=== PATIENT | male | born 1980 | race Caucasian/White ===

== ENCOUNTER 2020-09-12 09:24 | Outpatient (REF) | payer OTHER, SELFPAY ==
[2020-09-12 11:19] LABS: Hematocrit 41.9 % (42-52); Mean Corpuscular HGB Conc 33.4 g/dl (31.0-36.0); Mean Corpuscular Hemoglobin 29.7 pg (27.0-33.0); Mean Corpuscular Volume 88.8 fL (80-98); Mean Platelet Volume 11.9 fL (9.4-12.4); Platelet Count 183 X10*3/uL (160-400); Red Blood Count 4.72 X10*6/uL (4.60-5.80); Red Cell Distribution Width 12.8 % (11.0-16.0); White Blood Count 3.1 X10*3/uL (4.8-10.8)
[2020-09-12 12:07] LABS: Alanine Aminotransferase 44 U/L (0-40); Albumin Level 4.5 g/dL (3.5-5.0); Alkaline Phosphatase 60 U/L (39-117); Anion Gap 12 (12-20); Aspartate Amino Transferase 31 U/L (5-37); Bilirubin Total 0.9 mg/dL (0.0-1.0); Blood Urea Nitrogen 15 mg/dL (9-16); Calcium 9.5 mg/dL (8.4-10.2); Carbon Dioxide 28 mmol/L (22-29); Chloride 103 mmol/L (96-108); Cholesterol 185 mg/dL; Estimated Glomerular Filt Rate > 60; Glucose Fasting 88 mg/dL (60-99); HDL Cholesterol 49 mg/dL; LDL Cholesterol Calculated 127 mg/dl; Potassium 4.8 mmol/L (3.3-5.1); Sodium 138 mmol/L (135-145); Total Protein 6.9 g/dL (6.5-8.0); Triglycerides 47 mg/dL
== END 2020-09-12 09:25 | disposition home or self-care (01) ==
LOC: HO.MANLDS 09:24
PROVIDERS: PCP Internal Medicine; Visit Provider Physician Assistant
DX: Z00.00 Encounter for general adult medical examination without abnormal findings (principal)
CPT/HCPCS: 36415; 80053; 80061; 85027

== ENCOUNTER 2021-09-16 08:47 | Outpatient (REF) | payer OTHER, SELFPAY ==
[2021-09-16 11:06] LABS: MANUAL DIFF FLAG NO
[2021-09-16 11:14] LABS: Basophils Percent Auto 0.9 % (0-2); Eosinophils Absolute Auto 0.1 X10*3/uL (0.0-0.4); Hematocrit 42.1 % (42.0-52.0); Hemoglobin 13.9 g/dl (14.0-18.0); Lymphocytes Absolute Auto 1.1 X10*3/uL (1.2-4.9); Lymphocytes Percent Auto 32.3 % (20-40); Mean Corpuscular Hemoglobin 29.4 pg (27.0-33.0); Mean Platelet Volume 12.4 fL (9.4-12.4); Monocytes Absolute Auto 0.4 X10*3/uL (0.1-1.2); Monocytes Percent Auto 11.4 % (2-11); Neutrophils Absolute Auto 1.9 x10*3/uL (2.0-8.3); Neutrophils Percent Auto 53.4 % (45-73); Platelet Count 178 X10*3/uL (160-400); Red Blood Count 4.73 X10*6/uL (4.60-5.80); Red Cell Distribution Width 13.1 % (11.0-16.0); White Blood Count 3.5 X10*3/uL (4.8-10.8)
[2021-09-16 11:27] LABS: Alanine Aminotransferase 37 U/L (0-40); Albumin Level 4.2 g/dL (3.5-5.0); Alkaline Phosphatase 64 U/L (39-117); Anion Gap 10 (12-20); Aspartate Amino Transferase 30 U/L (5-37); Bilirubin Total 0.9 mg/dL (0.0-1.0); Blood Urea Nitrogen 17 mg/dL (9-16); Calcium 9.8 mg/dL (8.4-10.2); Carbon Dioxide 28 mmol/L (22-29); Chloride 103 mmol/L (96-108); Cholesterol 187 mg/dL; Estimated Glomerular Filt Rate > 60; Glucose Fasting 93 mg/dL (60-99); HDL Cholesterol 47 mg/dL; LDL Cholesterol Calculated 128 mg/dl; Potassium 4.2 mmol/L (3.3-5.1); Sodium 137 mmol/L (135-145); Total Protein 6.8 g/dL (6.5-8.0); Triglycerides 63 mg/dL
== END 2021-09-16 08:48 | disposition home or self-care (01) ==
LOC: HO.MANLDS 08:47
PROVIDERS: PCP Physician Assistant; Visit Provider Physician Assistant
DX: Z00.00 Encounter for general adult medical examination without abnormal findings (principal)
CPT/HCPCS: 36415; 80053; 80061; 82306; 85025

== ENCOUNTER 2022-09-16 08:45 | Outpatient (REF) | payer OTHER, SELFPAY ==
[2022-09-16 11:06] LABS: MANUAL DIFF FLAG NO
[2022-09-16 11:23] LABS: Estimated Average Glucose 103 mg/dL; Hemoglobin A1c % 5.2 %
[2022-09-16 11:29] LABS: Basophils Percent Auto 0.8 % (0-2); Eosinophils Absolute Auto 0.1 X10*3/uL (0.0-0.4); Eosinophils Percent Auto 2.4 % (0-4); Hematocrit 43.5 % (42.0-52.0); Hemoglobin 14.6 g/dl (14.0-18.0); Lymphocytes Absolute Auto 1.2 X10*3/uL (1.2-4.9); Lymphocytes Percent Auto 31.3 % (20-40); Mean Corpuscular HGB Conc 33.6 g/dl (31.0-36.0); Mean Corpuscular Hemoglobin 29.7 pg (27.0-33.0); Mean Corpuscular Volume 88.6 fL (80.0-98.0); Mean Platelet Volume 12.1 fL (9.4-12.4); Monocytes Absolute Auto 0.4 X10*3/uL (0.1-1.2); Monocytes Percent Auto 10.3 % (2-11); Neutrophils Percent Auto 55.2 % (45-73); Platelet Count 227 X10*3/uL (160-400); Red Blood Count 4.91 X10*6/uL (4.60-5.80); Red Cell Distribution Width 12.8 % (11.0-16.0); White Blood Count 3.7 X10*3/uL (4.8-10.8)
[2022-09-16 12:32] LABS: Alanine Aminotransferase 33 U/L (0-40); Albumin Level 4.3 g/dL (3.5-5.0); Alkaline Phosphatase 61 U/L (39-117); Anion Gap 16 (12-20); Aspartate Amino Transferase 26 U/L (5-37); Bilirubin Total 0.9 mg/dL (0.0-1.0); Blood Urea Nitrogen 17 mg/dL (9-16); Calcium 9.9 mg/dL (8.4-10.2); Carbon Dioxide 25 mmol/L (22-29); Chloride 104 mmol/L (96-108); Cholesterol 184 mg/dL; Estimated Glomerular Filt Rate > 60; Glucose Random 93 mg/dL (60-115); HDL Cholesterol 47 mg/dL; LDL Cholesterol Calculated 120 mg/dl; Potassium 4.8 mmol/L (3.3-5.1); Sodium 140 mmol/L (135-145); Total Protein 6.8 g/dL (6.5-8.0); Triglycerides 89 mg/dL
[2022-09-16 12:33] LABS: Vitamin D 25-OH Total 49.3 ng/mL (>30)
[2022-09-17 09:59] LABS: Free Prostate Spec Ag 0.2 ng/mL; Percent Free Prostate Spec Ag 50 % (calc) (>25); Prostate Specific Ag Total 0.4 ng/mL (< OR = 4.0)
== END 2022-09-16 08:46 | disposition home or self-care (01) ==
LOC: HO.MANLDS 08:45
PROVIDERS: Visit Provider Physician Assistant
DX: Z00.00 Encounter for general adult medical examination without abnormal findings (principal)
CPT/HCPCS: 36415; 80053; 80061; 82306; 83036; 84154; 85025

== ENCOUNTER 2023-09-29 10:44 | Outpatient (REF) | payer OTHER, SELFPAY ==
[2023-09-29 13:16] LABS: MANUAL DIFF FLAG NO
[2023-09-29 13:39] LABS: Basophils Percent Auto 0.7 % (0-2); Eosinophils Absolute Auto 0.1 X10*3/uL (0.0-0.4); Eosinophils Percent Auto 1.9 % (0-4); Hematocrit 46.3 % (42.0-52.0); Hemoglobin 15.6 g/dl (14.0-18.0); Imm Gran Abs Auto 0.01 X10*3/uL (0.00-0.03); Imm Gran Pct Auto 0.2 % (0.0-0.4); Lymphocytes Absolute Auto 1.3 X10*3/uL (1.2-4.9); Lymphocytes Percent Auto 31.8 % (20-40); Mean Corpuscular HGB Conc 33.7 g/dl (31.0-36.0); Mean Corpuscular Hemoglobin 29.8 pg (27.0-33.0); Mean Corpuscular Volume 88.5 fL (80.0-98.0); Mean Platelet Volume 12.2 fL (9.4-12.4); Monocytes Absolute Auto 0.4 X10*3/uL (0.1-1.2); Monocytes Percent Auto 9.3 % (2-11); Neutrophils Absolute Auto 2.3 x10*3/uL (2.0-8.3); Neutrophils Percent Auto 56.1 % (45-73); Platelet Count 205 X10*3/uL (160-400); Red Blood Count 5.23 X10*6/uL (4.60-5.80); Red Cell Distribution Width 13.1 % (11.0-16.0); White Blood Count 4.2 X10*3/uL (4.8-10.8)
[2023-09-29 13:40] LABS: Estimated Average Glucose 100 mg/dL; Hemoglobin A1c % 5.1 % (<6.0)
[2023-09-29 13:53] LABS: Alanine Aminotransferase 35 U/L (0-40); Albumin Level 4.6 g/dL (3.5-5.0); Alkaline Phosphatase 61 U/L (39-117); Anion Gap 12 (12-20); Aspartate Amino Transferase 26 U/L (5-37); Bilirubin Total 0.6 mg/dL (0.0-1.0); Blood Urea Nitrogen 16 mg/dL (9-16); Carbon Dioxide 29 mmol/L (22-29); Chloride 104 mmol/L (96-108); Cholesterol 193 mg/dL (<200); Estimated Glomerular Filt Rate > 60; Glucose Random 91 mg/dL (60-115); HDL Cholesterol 51 mg/dL (>40); LDL Cholesterol Calculated 124 mg/dL (<100); Potassium 4.7 mmol/L (3.3-5.1); Sodium 140 mmol/L (135-145); Total Protein 7.4 g/dL (6.5-8.0); Triglycerides 93 mg/dL (<150)
== END 2023-09-29 10:45 | disposition home or self-care (01) ==
LOC: HO.MANLDS 10:44
PROVIDERS: Visit Provider Physician Assistant
DX: Z00.00 Encounter for general adult medical examination without abnormal findings (principal); Z12.5 Encounter for screening for malignant neoplasm of prostate
CPT/HCPCS: 36415; 80053; 80061; 82306; 83036; 84153; 85025

== ENCOUNTER 2024-10-10 08:34 | Outpatient (REF) | payer OTHER, SELFPAY ==
--- OUTSIDE RECORDS SUMMARY | 2024-10-10 09:03 | XMS_ITS | Clinical Summary ---
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 Name Role Phone Unavailable Primary Care Provider Unavailabl e Immunizations Name Administration Dates Next Due Moderna Covid-19 Vaccine 12+ 09/13/2021,10/01/19,09/04/2020 Moderna Covid-19 Vaccine 6+ Bivalent 09/02/2022 Social History Tobacco Use Types Packs/Day Years Used Date Smoking Tobacco: Never Assessed Sex and Gender Information Value Date Recorded Sex Assigned at Not on file Legal Sex Male 2:30 PM EST Gender Identity Not on file Sexual Orientation Not on file Plan of Treatment Health Maintenance Due Date Last Done Comments Depression Screening 1981 Lipid Panel 1981 Alcohol/Substance Use Screening 1993 Tobacco Screening 1993 Family Planning (PISQ) 1996 Hepatitis B Vaccines (1 of 3 - 19+ 3-dose series) 2000 COVID-19 Vaccine ( - season) 2024 09/02/2022, 09/13/2021, 10/01/2020, Additional history exists Influenza Vaccine (#1) 2024 , 05/23/2021, 05/07/2019 DTaP/Tdap/Td Vaccines (2 - Td or Tdap) 08/10/2025 08/10/2015 Zoster Vaccines (1 of 2) 2031 RSV Patients and Patients Aged 60 years or older (1 - 1-dose 75+ series) 2056 HIB Vaccines Aged Out No longer eligi ble based on patient's age to complete this topic HPV Vaccines Aged Out No longer eligi ble based on patient's age to complete this topic Hepatitis A Vaccines Aged Out No long er eligible based on patient's age to complete this topic IPV Vaccines Aged Out No longer eligi ble based on patient's age to complete this topic Meningococcal Vaccine Aged Out No maximino anna eligible based on patient's age to complete this topic Pneumococcal Vaccine: Pediatrics (0 to 5 Years) and At-Risk Patients (6 to 49) Years) Aged Out No longer eligible based on patient's age to complete this topic RSV under 20 months Aged Out No longe r eligible based on patient's age to complete this topic Rotavirus Vaccines Aged Out No longer eligible based on patient's age to complete this topic
--- OUTSIDE RECORDS SUMMARY | 2024-10-10 09:03 | XMS_ITS | Data Portability ---
Author Organization [facility] Address [address] [place] [address] Assessment No assessment recorded. Plan of Treatment Reminders Order Date Submit Date Provider Last Modified By Organization Details Last Modified Time Details Appointments ANNUAL EXAM 2024 09:30A M BEA OMALLEY Not available Not available Not available Lab None recorde d. Referral physica l therapi st referra l 2020 021 [facility], [address] [place], [address], 07/19/2021 11:37:55 Procedures None recorde d. Surgeries None recorde d. Imaging None recorde d. Medication Orders baclofe n 10 mg tablet 2023 024 LAVELL [id number], [address] [place] [address], [id number], 10/05/2023 09:49:33 clotrim azole-b etameth asone 1 %-0.05 % topical cream 2022 023 rtryba [id number], [address] [place] [address], [id number], 10/05/2023 09:46:43 amoxici llin 875 mg-pota ssium clavula michael 125 mg tablet 2021 022 ngjose manuelner [id number], [address] [place] [address], [address], 09/24/2022 08:10:12 baclofe n 5 mg tablet 2020 021 rtryba [id number], [address] [place], [address], 10/05/2023 09:46:37 Patient TargetsNo targets recorded. Patient InstructionsNo instructions recorded. Reason for Referral Physical Therapist Referral for Neck pain cerivo-occipital neuralgia from neck strain, needs PT for neck spasm Referring Physician: Maxine Brambila, Internal Medicine, Encounter Date: 07/17/2021 Results Created Date Observation Date Name Description Value Unit Range Abnormal Flag Note LastModifiedBy Organization Detail LastModifiedTime Result Notes None recorded. Problems Name Problem SNOMED Code Status Onset Date Resolution Date Notes Provider Name and Address Organization Details Recorded Time Raynaud's disease 604193086 Active 2017 Not Available [facility] 3 12:17:23 Childhood asthma 625259834 Active 2017 Not Available [facility] 3 12:17:23 Vitamin D deficiency 00374671 Active 2017 Not Available [facility] 3 12:17:23 Migraine 28200172 Active 2018 Not Available [facility] 3 12:17:23 Acute otitis media 6442591 Active 2021 Not Available [facility] 3 12:17:23 Irritant contact dermatitis 090331335 Active 2022 Not Available [facility] 3 12:17:23 Motion sickness 45737195 Active 2022 Not Available [facility] 3 12:17:23 Problem Notes None recorded. Procedures Surgical History Date Name Laterality Status Provider Name and Address Organization Details Recorded Time 01/22/20 22 Cerumen Removal completed BEA OMALLEY [address] [place], [address], [facility] 01/21/2022 15:28:16 08/10/19 03 Unlisted px dentalvlr strux completed Lupe Felix NP, [address] [place] [address], [phone], [facility] Rebecca [facility] 07/05/2018 09:14:40 Imaging Results None recorded. Procedure Notes None recorded. Medical Equipment None Reported. Allergies No known drug allergies Medications Name Sig Start Date Stop Date Status Note LastModified by Organization Details LastModified Time sumatriptan 100 mg tablet TAKE 1 DOSE SERA AFTER MIGRAINE ONSET. MAY REPEAT DOSE X1 AFTER 2H IF NEEDED active Not Available Not Available No t Available pimecrolimu s 1 % topical cream APPLY TWICE DAILY TO AREAS OF ECZEMA UNTIL CLEAR. active Not Available Not Available No t Available baclofen 10 mg tablet TAKE 1 TABLET BY MOUTH THREE TIMES A DAY NEEDED active Not Available Not Available No t Available clotrimazol e-betametha sone 1 %-0.05 % topical cream PLEASE SEE ATTACHED FOR DETAILED DIRECTION S 10/05 completed Not Available Not Available Not Available cephalexin 500 mg tablet 07/17 completed Not Available Not Available Not Available scopolamine 1 mg over 3 days transdermal patch APPLY 1 PATCH EVERY 3 DAYS NEEDED 10/05 completed Not Available Not Available Not Available amoxicillin 875 mg-potassiu m clavulanate 125 mg tablet TAKE 1 TABLET BY MOUTH EVERY 12 HOURS FOR 7 DAYS 09/24 completed Not Available Not Available Not Available calcium 1/2 dose 600mg 07/17 completed Not Available Not Available Not Available Fish Oil 07/17 completed Not Available Not Available Not Available ibuprofen prn active Not Available Not Ketty ilable Not Available Vitamin D3 50 mcg (2,000 unit) capsule Take 1 capsule every day by oral route. 07/17 completed Not Available Not Available Not Available baclofen 5 mg tablet Take 1 tablet twice a day by oral route for 30 days. 10/05 completed PRN Not Available Not Available Not Available Flucelvax Quad (PF) 60 mcg (15 mcg x 4)/0.5 mL IM syringe 07/17 completed Not Available Not Available Not Available Nurtec ODT 75 mg disintegrat ing tablet active Not Available Not Available N ot Available Fluzone Quad (PF) 60 mcg (15 mcg x 4)/0.5 mL IM syringe PHARMACY [facility] 07/17 completed Not Available Not Available Not Available BinaxNOW COVID-19 Ag Self Test kit Use as Directed on the Package 09/24 completed Not Available Not Available Not Available Vitals Date Recorded Body height Body mass index (BMI) Body weight Oxygen saturation Oxygen saturation in Arterial blood by Pulse oximetry Heart rate Systolic blood pressure Diastolic blood pressure Provider Name and Address Organization Details Last Updated DateTime 1 175.26 cm 23.9 kg/m2 82309.6 g 98 % 98 % 58 /min 102 mm[Hg] 62 mm[Hg] Teresa Yanez [facility] 1 14:34:23 Date Recorded Body height Body mass index (BMI) Body weight Heart rate Oxygen saturation Oxygen saturation in Arterial blood by Pulse oximetry Systolic blood pressure Diastolic blood pressure Provider Name and Address Organization Details Last Updated DateTime 2 173.99 cm 23.9 kg/m2 84613.0 6 g 57 /min 97 % 97 % 100 mm[Hg] 66 mm[Hg] BEA OMALLEY [address] [place] [address], [phone] [place] [address] [facility] 2 10:09:37 Date Recorded Body height Oxygen saturation Oxygen saturation in Arterial blood by Pulse oximetry Heart rate Systolic blood pressure Diastolic blood pressure Provider Name and Address Organization Details Last Updated DateTime 2 173.99 cm 98 % 98 % 58 /min 120 mm[Hg] 70 mm[Hg] Teresa Yanez [facility] 2 14:55:09 Date Recorded Body height Body mass index (BMI) Body weight Oxygen saturation Oxygen saturation in Arterial blood by Pulse oximetry Heart rate Systolic blood pressure Diastolic blood pressure Provider Name and Address Organization Details Last Updated DateTime 3 173.99 cm 24.3 kg/m2 39401.3 2 g 98 % 98 % 52 /min 100 mm[Hg] 70 mm[Hg] Teresa Yanez [facility] 3 09:57:13 Date Recorded Body height Body mass index (BMI) Body weight Oxygen saturation Oxygen saturation in Arterial blood by Pulse oximetry Heart rate Systolic blood pressure Diastolic blood pressure Provider Name and Address Organization Details Last Updated DateTime 4 172.72 cm 25.4 kg/m2 49459.9 3 g 96 % 96 % 61 /min 110 mm[Hg] 72 mm[Hg] Pari Marquezmond [place] Rebecca [facility] 09:39:53 Social History Question Answer Notes LastModified by Organizat ion Details LastModified Time Tobacco Smoking Status Never Smoker Not Available [facility] 06/12/2020 03:36:23 Do You Or Have You Ever Used E-cigarettes Or Vape? Never Used Electronic Cigarettes Information not available 09/24/2022 What Was The Date Of Your Most Recent Tobacco Screening? 10/05/2023 [email or web address] Information not available 10/05/2023 Do You Or Have You Ever Used Smokeless Tobacco? Never Used Smokeless Tobacco Information not available 09/24/2022 How Much Tobacco Do You Smoke? No [id number] Information not available 06/12/2020 How Many Years Have You Smoked Tobacco? 0 [id number] Information not available 06/12/2020 Do You Or Have You Ever Used Any Other Forms Of Tobacco Or Nicotine? No [email or web address] Information not available 10/05/2023 Sex: Unknown Functional Status None recorded. Mental Status None recorded. Family History Relationship Description Onset Age of this Age Resolved Age Notes LastModified by Organization Details LastModified Time Father Hypercholest erolemia [email or web address] Not available 2017 08:59:00 Mother Type 2 diabetes mellitus htn, hyperc hol [email or web address] Not available 10/05/2023 09:36:15 Mother Schizophreni a [email or web address] Not available 09:36:16 Mother Dementia [email or web address] Not available 0 09/19/2020 10:26:13 Sister Impaired fasting glycemia [email or web address] Not available 09:36:16 Paternal Grandmother Coronary arterioscler osis NIDDM [email or web address] Not available 2017 09:00:15 Paternal Grandfather Leukemia [email or web address] Not available 10/05/2023 09:36:16 Medical History Condition Response Coronary Artery Disease N Gout N Kidney Stones N Blood Diseases N Hyperthyroidism N Breast Cancer N Blood Transfusion N Lung Disease N Hypothyroidism N Depression N COPD N Defects or Inherited Disease N Difficulty Swallowing N Anesthesia Complications N Anxiety Disorder N Muscle, Joint, or Bone Problems N Vision or Eye Problems N Arthritis N Mental Disorder N Cancer N Varicosities N Bladder or Kidney Problems N High Cholesterol N Liver Disease N Headaches Y Fibromyalgia N Kidney Disease N Heart Problems N Hospitalizations N Thyroid Problems N GI Problems N Skin Problems N Eating Disorder N Anemia N Mental Illness N Diabetes N Seizures/Epilepsy N Tuberculosis N Congestive Heart Failure (CHF) N Eczema N Diverticulitis N Abuse/Domestic Violence N Asthma N Reflux/GERD N Hepatitis N Pulmonary Embolism N Hypertension N Chronic Ear Infections N Chicken Pox N Autism Spectrum Disorder (ASD) N Immunizations Vaccine Type Date Status Note Provider Nam e and Address Organization Details Recorded Time Influenza, split virus, quadrivalent, preservative 1 completed Zeinab heaton [facility] 09/24/2022 09:52:48 COVID-19, mRNA, LNP-S, PF, 100 mcg/0.5mL dose or 50 mcg/0.25mL dose 1 [facility] 09:52:48 COVID-19, mRNA, LNP-S, PF, 100 mcg/0.5mL dose or 50 mcg/0.25mL dose 1 completed Zeinab heaton [facility] 09/24/2022 09:52:48 COVID-19, mRNA, LNP-S, PF, 100 mcg/0.5mL dose or 50 mcg/0.25mL dose 2 [facility]22 09:52:48 influenza, unspecified formulation 2 [facility]22 09:52:48 influenza, unspecified formulation 4 [facility]24 08:01:02 SARS-COV-2 (COVID-19) vaccine, UNSPECIFIED 4 [facility]/25[facility]24 08:01:08 influenza, unspecified formulation 4 [facility] 04/25/2024 08:01:53 SARS-COV-2 (COVID-19) vaccine, UNSPECIFIED 4 completed Valeri Tejada null, [facility] 04/25/2024 08:01:59 Influenza, split virus, quadrivalent, preservative 9 completed Zeinab Brown florina, [facility] 09/24/2022 09:52:48 Influenza, split virus, quadrivalent, preservative 9 completed Zeinab Brown null, [facility] 09/24/2022 09:52:48 Tdap 6 completed Juana Lovell florina, [facility] 09/19/2020 10:02:31 Past Encounters Encounter ID Performer Location Encounter Start Date Encounter Closed Date Diagnosis/Indication Diagnosis SNOMED-CT Code Diagnosis ICD10 Code Diagnosis Note [id number] Lupe Felix NP, [facility] [address] [address] 07/05/2018 09:07:55 07/05/2018 16:05:43 Adult health examination 219142157 Z00.00 Active or passive immunization 286201078 Z23 [id number] November [facility] [address],[place] [address] 04/18/2019 09:11:03 04/18/2019 09:49:03 Migraine 11590814 G43.909 Vitamin D deficiency 347 01175 E55.9 Childhood asthma 8360838 06 J45.909 last attack age 18, hasn't bothered him since Raynaud's disease 814462 006 I73.00 [id number] [facility] [address],[place] [address] 07/13/2019 13:42:34 07/13/2019 14:05:45 Adult health examination 087968038 Z00.00 Childhood asthma 5264045 06 J45.909 last attack age 18, hasn't bothered him since Migraine 93639727 G43.90 9 Vitamin D deficiency 347 79979 E55.9 [id number] BEA OMALLEY [facility] [address],[place] [address] 09/19/2020 09:59:33 09/19/2020 11:05:33 Migraine 87555758 G43.909 the patient needs refill of his abortive medication stable on it, doesn't need maintenanc e medication as he doesn't have them frequently enough to warrant them Adult heal th examination 712953308 Z00.00 BP 100/70 excellent control BW was excellent [id number] BEA OMALLEY [facility] [address] [facility],[place] [address] 07/17/2021 14:26:55 07/19/2021 11:37:54 Cervico-occipital neuralgia 43834646 M54.81 will trial small dose of baclofen for muscle relaxation for his upper back and neck spasm Neck pain 96295501 M54.2 will set up for PT for correction and treatment of neck spasm Migraine 07020681 G43.00 9 discussed cause of the migraine will set up correction [id number] BEA OMALLEY [facility] [address], [facility] [place] [address] 09/20/2021 09:59:44 09/24/2021 08:13:14 Active or passive immunization 951200912 Z23 up to date Adult [facility] examination 832323337 Z00.00 BP 100/66 excellent control BW was excellent [id number] BEA OMALLEY [facility] [address], [place] [address] 01/21/2022 14:46:53 01/22/2022 14:56:05 Acute otitis media 5330342 H65.03 will start on abx and fu next week for a recheck and flush [id number] BEA OMALLEY [facility] [address], [place] [address] 09/24/2022 09:51:50 09/24/2022 11:10:30 Active or passive immunization 082607565 Z23 up to date Adult heal th examination 317269556 Z00.00 BP 100/70 excellent control BW was excellent Irritant c ontact dermatitis 855454779 L24.9 will start on dual treatment Migraine 64351494 G43.00 9 discussed cause of the migraine will set up correction [id number] BEA OMALLEY [facility] [address],[place] [address] 10/05/2023 09:35:48 10/05/2023 16:10:05 Migraine 42335642 G43.009 discussed cause of the migraine will set up correction Childhood asthma 6021055 06 J45.20 stable Adult heal th examination 617128715 Z00.00 BP 110/72 excellent control BW was excellent today Health Concerns Section Related Observation LastModified by Organization Detai ls LastModified Time None Recorded Concern Status LastModified by Organization Details LastModified Time None Recorded Advance Directives Directive None Recorded Payers Encounter Date Sequence Insurance Name Policy Number Policy Echeverria Covered Member ID Echeverria Member ID Guarantor Name 07/17/2021 1 [facility] [id number] Tigre Leary [id number] Tigre Leary 09/20/2021 1 [facility] [id number] Tigre Leary [id number] Tigre Leary 01/21/2022 1 [facility] [id number] Tigre Leary [id number] Tigre Leary 09/24/2022 1 [facility] [id number] Tigre Leary [id number] Tigre Leary 10/05/2023 1 [facility] [id number] Tigre Leary [id number] Tigre Leary Notes Date Note Type Note Provider Name and Address Organization Details Recorded Time 1 text/html c/o neck and back pain the patient reports that he has occipital neuralgiarelated to poor posture and ergonomics due to the fact 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 07/17/2021 14:56:20 2 text/html Annual WellnessReported bypatient.Diet and Nutrition:healthy diet; discussed vitamin and supplement use; discussed portion control; discussed maintaining calcium balance; discussed diet improvement Fracture Risk:no history of fractures; no recent explained fracture; no sudden unexplained fractures; no previous musculoskeletal injuries; the patient reports a couple months ago he was working out noticed afterwards his ring finger of his ringer hand was swollen and bruised improved with ice sometimes still gets popping and sensitivity most likely prior tissue vs subluxation of the joint with post traumatic symptoms Physical Activity:exercises on a regular basis; recent increase in physical activity; good physical condition Additional Lifestyle Factors:no tobacco use; drinks alcohol (mild-moderate) Depression Risk:never feels sad, empty, or tearful; no loss of interest in activities; no significant changes in weight; no sleep disturbances or insomnia; no agitation; no loss of energy; no feelings of worthlessness or guilt; no thoughts of suicide; no history of depression; no history of mood disorders Hearing:no loss of hearing Vision:no vision problems BEA OMALLEY [address] [place] [address], [phone], [facility] 09/20/2021 10:32:50 2 text/html c/o ear pain bilateral ear infection with impacted right ear, lavage stopped due to increased inflammationwill start on abx for bilateral ear infection and fu next week to finish the ear lavagewill fu as needed BEA OMALLEY [address] [place] [address], [address], [facility] 01/21/2022 15:30:44 3 text/html Annual WellnessReported bypatient.Diet and Nutrition:healthy diet; discussed vitamin and supplement use; discussed portion control; discussed maintaining calcium balance; discussed diet improvement Fracture Risk:no history of fractures; no recent explained fracture; no sudden unexplained fractures; no previous musculoskeletal injuries Physical Activity:exercises on a regular basis; recent increase in physical activity; good physical condition Additional Lifestyle Factors:no tobacco use; drinks alcohol (mild-moderate) Depression Risk:never feels sad, empty, or tearful; no loss of interest in activities; no significant changes in weight; no sleep disturbances or insomnia; no agitation; no loss of energy; no feelings of worthlessness or guilt; no thoughts of suicide; no history of depression; no history of mood disorders Hearing:no loss of hearing Vision:no vision problems the patient had BW prior to apptBW looked great the patient reports that the migraines are related to neck painhas been working on his neck which has worked very very wellthe patient also has been using a new pillow which is very helpful the patient reports that his fingers have been swelling up related to carabeners (getting snagged)may be having an allergic reaction with a mild localized reaction to the metal or paint of the carabenersdiscussed soaking his fingers in salt/iodine and warm water BEA OMALLEY [address] [place], [address], [facility] 09/24/2022 10:42:35 text/html Annual WellnessReported bypatient.Diet and Nutrition:healthy diet; discussed vitamin and supplement use; discussed portion control; discussed maintaining calcium balance; discussed diet improvement Fracture Risk:no history of fractures; no recent explained fracture; no sudden unexplained fractures; no previous musculoskeletal injuries Physical Activity:exercises on a regular basis; recent increase in physical activity; good physical condition Additional Lifestyle Factors:no tobacco use; drinks alcohol (mild-moderate) Depression Risk:never feels sad, empty, or tearful; no loss of interest in activities; no significant changes in weight; no sleep disturbances or insomnia; no agitation; no loss of energy; no feelings of worthlessness or guilt; no thoughts of suicide; no history of depression; no history of mood disorders Hearing:no loss of hearing Vision:no vision problemsNotes:does his dental appt every 6 mos the patient is having issues with the sumatriptanthe patient is having more migraines, same presentation no new or red flag symptoms the patient reports that they do not respond well to medicationcurrently having to take two of the sumatriptan instead of one the patient reports that he started magnesium for his msk cramps and he is doing really well asthma is stable (hasn't had issues since he was a kid) will refill the baclofen which seems to help a bit with his migraineswant him to trial Nuctec ODT to see if it works more than the sumatriptan the patient is very active BEA OMALLEY [address] [place], [address], [facility] 10/05/2023 10:12:46
[2024-10-10 13:09] LABS: MANUAL DIFF FLAG NO
[2024-10-10 13:16] LABS: Basophils Percent Auto 0.7 % (0-2); Eosinophils Absolute Auto 0.1 X10*3/uL (0.0-0.4); Eosinophils Percent Auto 1.7 % (0-4); Hematocrit 42.6 % (42.0-52.0); Hemoglobin 14.1 g/dl (14.0-18.0); Imm Gran Abs Auto 0.01 X10*3/uL (0.00-0.03); Imm Gran Pct Auto 0.2 % (0.0-0.4); Lymphocytes Absolute Auto 1.1 X10*3/uL (1.2-4.9); Lymphocytes Percent Auto 18.9 % (20-40); Mean Corpuscular HGB Conc 33.1 g/dl (31.0-36.0); Mean Corpuscular Hemoglobin 29.1 pg (27.0-33.0); Mean Corpuscular Volume 87.8 fL (80.0-98.0); Mean Platelet Volume 12.7 fL (9.4-12.4); Monocytes Absolute Auto 0.5 X10*3/uL (0.1-1.2); Monocytes Percent Auto 9.3 % (2-11); Neutrophils Percent Auto 69.2 % (45-73); Platelet Count 204 X10*3/uL (160-400); Red Blood Count 4.85 X10*6/uL (4.60-5.80); Red Cell Distribution Width 13.7 % (11.0-16.0); White Blood Count 5.7 X10*3/uL (4.8-10.8)
[2024-10-10 13:23] LABS: Estimated Average Glucose 100 mg/dL; Hemoglobin A1C 118.6041 umol/L; Hemoglobin A1c % 5.1 % (<6.0); Total Hemoglobin (HGBA1C) 3689.6355 umol/L
[2024-10-10 13:41] LABS: Alanine Aminotransferase 41 U/L (0-40); Albumin Level 4.4 g/dL (3.5-5.0); Alkaline Phosphatase 74 U/L (39-117); Anion Gap 13 (12-20); Aspartate Amino Transferase 31 U/L (5-37); Bilirubin Total 0.8 mg/dL (0.0-1.0); Blood Urea Nitrogen 18 mg/dL (9-16); Calcium 9.5 mg/dL (8.4-10.2); Carbon Dioxide 26 mmol/L (22-29); Chloride 105 mmol/L (96-108); Cholesterol 159 mg/dL (<200); Estimated Glomerular Filt Rate > 60; Glucose Random 83 mg/dL (60-115); HDL Cholesterol 51 mg/dL (>40); LDL Cholesterol Calculated 94 mg/dL (<100); Sodium 140 mmol/L (135-145); Total Protein 7.5 g/dL (6.5-8.0); Triglycerides 72 mg/dL (<150)
[2024-10-10 13:47] LABS: Prostate Specific Antigen 0.42 ng/mL (<0.05-4.0)
[2024-10-14 05:39] LABS: VITAMIN D (1,25 OH) D3 39 pg/mL; Vit D (1,25-Dihydroxy) Total 39 pg/mL (18-72); Vitamin D (1,25 OH) D2 <8 pg/mL
== END 2024-10-10 08:35 | disposition home or self-care (01) ==
LOC: HO.MANLDS 08:34
PROVIDERS: Visit Provider Physician Assistant
DX: E55.9 Vitamin D deficiency, unspecified (principal); Z13.6 Encounter for screening for cardiovascular disorders; Z12.5 Encounter for screening for malignant neoplasm of prostate; Z13.1 Encounter for screening for diabetes mellitus
CPT/HCPCS: 36415; 80053; 80061; 82652; 83036; 84153; 85025